=== PATIENT | female | born 1970 | race Caucasian/White ===

== ENCOUNTER 2023-05-21 12:10 | Emergency (ER) | payer OTHER, SELFPAY ==
[2023-05-21 12:28] VITALS: BP 136/77; PULSE 71; RESP 18; TEMP 37.2; O2SAT 100; BMI 25.2
--- NOTE | 2023-05-21 16:13 | ED.EAR ---
HPI - Ear Problem General Chief complaint: Ear Stated complaint: double ear infection/antibiotics not working/ruptu Time Seen by Provider: 05/21/23 16:12 Source: patient Mode of arrival: Ambulatory History of Present Illness HPI Narrative: 53-year-old female with history of rheumatoid arthritis on Enbrel with recurrent ear infections. Patient has been on Ciprodex topically for an otitis externa. She has also had 2 rounds of antibiotics including Ceftin and doxycycline for 10 days each without any improvement. She believes the left ear did rupture she can hear a whistle and she states the pain was significantly improved. She states the right ear feels like it is about to rupture. She is still on the 2nd oral antibiotic. She is using the Cipro eardrops. Patient states she is stopped her Enbrel in the last several weeks until the infection is cleared. She has been in touch with her primary care they sent referral to ENT she is not been able to get in until July. Patient and family are traveling to [facility] for the holiday. She has been taking meloxicam PRN which is somewhat helpful for pain. She is also put heat to the affected ear on the right. Related Data Previous Rx's Medication Instructions Recorded ciprofloxacin HCl 500 mg tablet 500 mg PO Q12H #20 tabs 05/21/23 Allergies Allergy/AdvReac Type Severity Reaction Status Date / Time codeine AdvReac Verified 05/21/23 12:28 Penicillins AdvReac Verified 05/21/23 12:28 Review of Systems Review of Systems ROS Unobtainable: All systems reviewed & are unremarkable except as noted in HPI and below Patient History Social History Smoking Status: Never smoker Smoking Status: Never smoker alcohol intake frequency: a few times a week Substance Use Type: does not use Exam Narrative Exam Narrative: GEN: well nourished, well appearing female, alert and oriented x 3, patient appears to be in mild distress. HEENT: Atraumatic, pupils are equal round reactive to light, extraocular movements are intact, nares are clear, left TM is retracted with fluid, there does appear to be a small hole at the 5 o'clock position that is 4 mm in size. On the right patient's TM is retracted there does appear to be almost like an ulceration at the 3 o'clock position but does not appear to have ruptured or be a whole. There does appear to be a small amount of blood behind the drum it is not bulging. There is a light reflex present. Throat is clear without any exudates, erythema, tonsillar enlargement or uvular deviation HEART: Regular rate and rhythm without murmur, clicks, rubs. LUNGS:Lungs clear to auscultation, no wheezes, rales, crackles, chest moves symmetrically ABD:bowel sounds normal, soft, non-tender, no guarding, rebound, rigidity, no masses noted, no hepatosplenomegaly MSCL: Non-tender, no muscle atrophy, muscles strength 5/5 upper and lower extremities, full range of motion, normal gait NEURO:CN 2-12 intact, sensation normal SKIN: No rash, erythema or other skin changes. Initial Vital Signs Initial Vital Signs: Vital Signs Temperature 99 F 05/21/23 12:28 Pulse Rate 71 05/21/23 12:28 Respiratory Rate 18 05/21/23 12:28 Blood Pressure 136/77 05/21/23 12:28 Pulse Oximetry 100 05/21/23 12:28 Oxygen Delivery Method Room Air 05/21/23 12:28 Course Vital Signs Vital signs: Vital Signs - 8 hr 05/21/23 12:28 05/21/23 16:42 Temperature 99 F Pulse Rate 71 60 Respiratory Rate 18 16 Blood Pressure 136/77 109/67 Pulse Oximetry 100 100 Oxygen Delivery Method Room Air Room Air Medical Decision Making MDM Narrative Medical decision making narrative: Patient left eardrum appears to have ruptured. Right appears like might although it is more retracted than bulging but there is clearly fluid behind it. Patient has been on Ceftin and doxycycline. She states she has not allergy to penicillins and does not think she can take amoxicillin Jose derivatives. Discussed with patient she does not appear to have an otitis externa does not have to continue the Ciprodex drops. Spoke with Dr. De Los Santos, ENT. Recommends to continue the Ciprodex would actually recommend Cipro or Levaquin orally and follow up with them in the next few days. It is Wednesday he notes the office will be open Wednesday after the holiday. He does feel patient would be appropriate to be seen in the office secondary to her history of immune suppression and recurrent infections. Discharge Plan Departure Patient Disposition: Home Clinical Impression: Eardrum rupture, left Otitis media Qualifiers: Otitis media type: suppurative Chronicity: acute Laterality: right Spontaneous tympanic membrane rupture: without spontaneous rupture Activity Restrictions/Additional Instructions: Follow up with ENT, call Wednesday to set up follow-up they should be open on Wednesday at can see you on Wednesday according to Dr. De Los Santos. He does recommend you continue to use the Ciprodex drops as prescribed. Take ciprofloxacin 1 tablet twice daily for the next 10 days. Prescription was printed Please return if you are having significantly worsening symptoms or go to the nearest ER, fevers, increasing redness swelling, sudden changes to hearing or other new or concerning changes. Prescriptions: New ciprofloxacin HCl 500 mg tablet 500 mg PO Q12H Qty: 20 0RF Referrals: Jose De Los Santos MD [Physician] - Stand Alone Forms: Patient Portal/API
[2023-05-21 16:42] VITALS: BP 109/67; PULSE 60; RESP 16; O2SAT 100
== END 2023-05-21 16:45 | disposition home or self-care (01) ==
PROVIDERS: Emergency Provider Emergency Medicine
DX: H66.3X3 Other chronic suppurative otitis media, bilateral (principal); H72.92 Unspecified perforation of tympanic membrane, left ear
CPT/HCPCS: 99281